=== PATIENT | female | born 1940 | race Caucasian/White ===

== ENCOUNTER 2016-09-03 10:58 | Observation (INO) | payer OTHER ==
[~2016-09-03] VITALS: Ht 157.5 cm; Wt 59.6 kg
[2016-09-03] VITALS (8 sets, daily range): BP systolic 144–168; BP diastolic 74–91; PULSE 61–76; RESP 16–19; TEMP 97.3–98.4; O2SAT 98–100
[~2016-09-03 10:58] MED LIST: ZOCO40TA PO
[2016-09-03] MEDS ORDERED: DEXA0.5E3 PO (11:21)
[2016-09-03] MEDS ORDERED: ZOCO40TA PO (11:21)
[2016-09-03] MEDS ORDERED: METR0.752 TOPICAL (11:21)
[2016-09-03] MEDS ORDERED: DOXY100C PO (11:21)
--- NOTE | 2016-09-03 12:42 | PD ---
HPI Chief Complaint: Oral / Dental Pain or Problem Time Seen by Provider: 12:36 Travel History International Travel<30 days: No Contact w/Intl Traveler<30days: No Traveled to known affect area: No History of Present Illness HPI 75-year-old female with history of high cholesterol, presents to the ER today sent in by her insurance company and primary care doctor, states that over last 3-4 weeks she has been having pustular rash, feeling like her tongue is swollen , has been in to see a boat carpenter to get a biopsy of her pustular rash, and her primary care doctor is sending her to ENT for her throat issues. She states that her dentist thinks that her throat swelling may be secondary to allergic reaction and only possible new medication that she may be allergic to Zocor which she states she started about 3-4 weeks ago when the symptoms started. She has stopped taking the medication for at least 2 weeks. She still is having the throat discomfort which she describes as a upper chest discomfort radiating up to the throat area. No difficulty talking, swallowing, or any other symptoms. She denies any shortness of breath. She does not notice any exacerbating or alleviating factors. She went in to try to get into see her primary care doctor today and was sent into the ER. She states that the chest discomfort is currently a 5 out of 10. Modifying Factors: None Associated Signs & Symptoms: Chest discomfort with radiation up to her throat, feeling like tongue is swollen, rash Risk Factors: High cholesterol PFSH Past Medical History Heart Rhythm Problems: No Cardiac Catheterization: No Cardiovascular Problems: No High Cholesterol: Yes Diabetes: No Diminished Hearing: No Hypertension: No Myocardial Infarction: No Past Surgical History Coronary Artery Bypass Graft: No Hysterectomy: Yes Family History Family Myocardial Infarction: Yes (FATHER AGE 50) Social History Alcohol Use: Yes (2 DRINKS WEEKLY) Tobacco Use: No Substance Use: No Allergies-Medications (Allergen,Severity, Reaction): Coded Allergies: No Known Allergies (Verified , 06/13/14) Reported Meds & Prescriptions Reported Meds & Active Scripts Active Reported Metronidazole Topical 0.75 % Cream 1 Applic TOPICAL BID Doxycycline Hyclate 100 Mg Cap 100 Mg PO BID Dexamethasone Liq (Dexamethasone) 0.5 Mg/5 Ml Elix 0.5 Mg PO DAILY Zocor (Simvastatin) 40 Mg Tab 40 Mg PO DAILY Review of Systems Except as stated in HPI: all other systems reviewed are Neg Physical Exam Narrative GENERAL: Well-developed elderly white female patient currently not in acute distress. Awake and oriented 3. Conversant without issues. No hoarseness. SKIN: Warm and dry. No signs of hives. I do not see significant widespread rash. HEAD: Atraumatic. Normocephalic. EYES: Pupils equal and round. No scleral icterus. No injection or drainage. ENT: No nasal bleeding or discharge. Mucous membranes pink and moist. No signs of angioedema or airway edema. Airway is open. NECK: Trachea midline. No JVD. CARDIOVASCULAR: Regular rate and rhythm. No murmur appreciated. RESPIRATORY: No accessory muscle use. Clear to auscultation. Breath sounds equal bilaterally. GASTROINTESTINAL: Abdomen soft, non-tender, nondistended. Hepatic and splenic margins not palpable. MUSCULOSKELETAL: No obvious deformities. No clubbing. No cyanosis. No edema. NEUROLOGICAL: Awake and alert. No obvious cranial nerve deficits. Motor grossly within normal limits. Normal speech. PSYCHIATRIC: Appropriate mood and affect; insight and judgment normal. Data Data Last Documented VS Vital Signs Date Time Temp Pulse Resp B/P Pulse Ox O2 Delivery O2 Flow Rate FiO2 09/03/16 13:02 62 16 149/78 100 Room Air 09/03/16 11:07 98.4 Orders Electrocardiogram (09/03/16 12:36) Basic Metabolic Panel (Bmp) (09/03/16 12:36) Ckmb (Isoenzyme) Profile (09/03/16 12:36) Complete Blood Count With Diff (09/03/16 12:36) Magnesium (Mg) (09/03/16 12:36) Troponin I (09/03/16 12:36) Chest, Single Ap (09/03/16 12:36) Ecg Monitoring (09/03/16 12:36) Bilateral Bp Monitoring (09/03/16 12:36) Iv Access Insert/Monitor (09/03/16 12:36) Oximetry (09/03/16 12:36) Oxygen Administration (09/03/16 12:36) Sodium Chloride 0.9% Flush (Ns Flush) (09/03/16 12:45) Labs Laboratory Tests Test 09/03/16 09/03/16 12:55 13:20 White Blood Count 5.8 TH/MM3 Red Blood Count 3.95 MIL/MM3 Hemoglobin 12.8 GM/DL Hematocrit 38.3 % Mean Corpuscular Volume 97.1 FL Mean Corpuscular Hemoglobin 32.4 PG Mean Corpuscular Hemoglobin 33.4 % Concent Red Cell Distribution Width 12.9 % Platelet Count 326 TH/MM3 Mean Platelet Volume 8.0 FL Neutrophils (%) (Auto) 70.2 % Lymphocytes (%) (Auto) 19.1 % Monocytes (%) (Auto) 7.5 % Eosinophils (%) (Auto) 0.7 % Basophils (%) (Auto) 2.5 % Neutrophils # (Auto) 4.2 TH/MM3 Lymphocytes # (Auto) 1.1 TH/MM3 Monocytes # (Auto) 0.4 TH/MM3 Eosinophils # (Auto) 0.0 TH/MM3 Basophils # (Auto) 0.1 TH/MM3 CBC Comment DIFF FINAL Differential Comment Sodium Level 142 MEQ/L Potassium Level 4.3 MEQ/L Chloride Level 105 MEQ/L Carbon Dioxide Level 26.7 MEQ/L Anion Gap 10 MEQ/L Blood Urea Nitrogen 20 MG/DL Creatinine 0.69 MG/DL Estimat Glomerular Filtration 83 ML/MIN Rate Random Glucose 101 MG/DL Calcium Level 8.9 MG/DL Magnesium Level 2.2 MG/DL Total Creatine Kinase 51 U/L Troponin I LESS THAN 0.02 NG/ML MDM Medical Decision Making Medical Screen Exam Complete: Yes Emergency Medical Condition: Yes Medical Record Reviewed: Yes Interpretation(s) EKG shows NSR, no ST elevation or depression, and no arrhythmias. No significant T-wave inversions. Last 24 hours Impressions Chest X-Ray 09/03/16 1236 Signed Impressions: Service Date/Time: Saturday, September 03, 2016 13:14 - CONCLUSION: 1. Probable linear scarring/atelectasis in the left lingula and lateral left base. 2. Old granulomatous disease. 3. No confluent infiltrate. Dylan Estrada MD Laboratory Tests Test 09/03/16 09/03/16 12:55 13:20 Red Blood Count 3.95 MIL/MM3 (4.00-5.30) Neutrophils (%) (Auto) 70.2 % (16.0-70.0) Basophils (%) (Auto) 2.5 % (0.0-2.0) Blood Urea Nitrogen 20 MG/DL (7-18) Estimat Glomerular Filtration 83 ML/MIN (>89) Rate Troponin I LESS THAN 0.02 NG/ML (0.02-0.05) Differential Diagnosis Throat swelling, chest discomfort with radiation up to the throat, rash allergic reaction versus anxiety versus dysrhythmias versus ACS Narrative Course I do not see any signs of an obvious angioedema in this case. Her symptoms are questionable for atypicals presentation of cardiac issues. She does have high cholesterol. Her EKG did not show any signs of acute ST-T changes. Cardiac enzymes are negative. I have talked to the patient regarding findings and at this point, my plan would be to admit her for further evaluation a chest pains. Case was discussed with Dr. Ron for admission. Diagnosis Primary Impression: Atypical chest pain Admitting Information Admitting Physician Requests: Admit Cabrera Cornejo MD Sep 03, 2016 12:42 Cabrera Cornejo MD Sep 03, 2016 12:42
[2016-09-03] MEDS ORDERED: SODIUM CHLORIDE 0.9% FLUSH 10 ML FLUSH IVF PRN (12:45)
[2016-09-03 13:03] LABS: AUTOMATED NEUTROPHIL # 4.2 TH/MM3 (1.8-7.7); BASOPHIL # 0.1 TH/MM3 (0-0.2); BASOPHIL % 2.5 % (0.0-2.0); EOSINOPHIL % 0.7 % (0.0-4.0); HEMATOCRIT 38.3 % (35.0-46.0); LYMPH % 19.1 % (9.0-44.0); LYMPHOCYTE # 1.1 TH/MM3 (1.0-4.8); MEAN CELL VOLUME 97.1 FL (80.0-100.0); MEAN CORPUSCULAR HEMOGLOBIN 32.4 PG (27.0-34.0); MEAN CORPUSCULAR HGB CONC 33.4 % (32.0-36.0); MONO % 7.5 % (0.0-8.0); NEUT % 70.2 % (16.0-70.0); PLATELET COUNT 326 TH/MM3 (150-450); RED BLOOD COUNT 3.95 MIL/MM3 (4.00-5.30); RED CELL DISTRIBUTION WIDTH 12.9 % (11.6-17.2); WHITE BLOOD COUNT 5.8 TH/MM3 (4.0-11.0)
[2016-09-03 13:05] LABS: HEMO FLAGS DIFF FINAL
[2016-09-03 13:38] LABS: CHLORIDE 105 MEQ/L (98-107); POTASSIUM 4.3 MEQ/L (3.5-5.1); SODIUM (NA) 142 MEQ/L (136-145)
[2016-09-03 13:41] LABS: ANION GAP 10 MEQ/L (5-15); BICARBONATE 26.7 MEQ/L (21.0-32.0); BLOOD UREA NITROGEN 20 MG/DL (7-18); MAGNESIUM 2.2 MG/DL (1.5-2.5)
[2016-09-03 13:44] LABS: GLOMERULAR FILTRATION RATE 83 ML/MIN (>89)
[2016-09-03 13:58] LABS: CREATINE KINASE 51 U/L (26-192)
--- NOTE | 2016-09-03 14:26 | RADHPO ---
EXAM DATE/TIME: 09/03/2016 13:14 [facility] COMPARISON: CHEST SINGLE AP, August 04, 2009, 11:51. INDICATIONS : Patient states chest pains. MEDICAL HISTORY : Hypercholesterolemia. SURGICAL HISTORY : None. ENCOUNTER: Initial ACUITY: 1 day PAIN SCORE: 4/10 LOCATION: Bilateral chest FINDINGS: A single view of the chest demonstrates the lungs to be symmetrically aerated with probable linear sc arring in the left lingular and lateral base regions. Small granulomatous type calcifications in the right lung. No confluent infiltrates or effusions. Heart size is normal. Osseous structures are intac t. CONCLUSION: 1. Probable linear scarring/atelectasis in the left lingula and lateral left base. 2. Old granulomatous disease. 3. No confluent infiltrate. Dylan Estrada MD on September 03, 2016 at 14:23 Board Certified Radiologist. This report was verified electronically.
[2016-09-03] MEDS ORDERED: ASPIRIN 325 MG TAB PO ONE (15:15)
--- NOTE | 2016-09-03 16:17 | HHI.HP ---
[facility] Service [facility] Primary Care Physician Antony Wynn MD Admission Diagnosis atypical chest pain Diagnoses: Chief Complaint: Chest pain, skin rash, swollen tongue Travel History International Travel<30 Days: No Contact w/Intl Traveler <30 Da: No Traveled to Known Affected Are: No History of Present Illness 75 years old female with history of hyperlipidemia and skin eczema presented to the ED sent by her insurance company primary care physician as she said because she's been having skin rash with swollen tongue over the last few days so she was directed to go to the ED. In ED she did not found to have significant skin changes. Patient told me she has had right eye skin biopsy which found to have eczema she is on Decadron tablet. In fact my assessment is the patient might be anxious (which she admitted) also have a level of somatization. However due to the fact of mentioning chest tightness about 6-7 out of 10 in the center of the chest no relation to movement not precipitated by pressure, no short of breath, no related to food no alleviating or exacerbating factor , on top of a significant family history of coronary artery disease in her father who at the age of 55 of heart, sister had CABG, as well as mother, and with her history of hyperlipidemia it's important to rule out underlying ischemic process. Review of Systems All 10 systems reviewed and was positive for what is mentioned in history of present illness otherwise negative Past Family Social History Past Medical History Hyperlipidemia Dermatitis/ischemia Past Surgical History Skin biopsy on the right side Allergies: Coded Allergies: No Known Allergies (Verified , 09/03/16) Family History Significant for coronary artery disease father at the age of 55 of heart attack, mother and sister had CABG Social History Denied tobacco alcohol or illicit drug abuse Physical Exam Vital Signs Vital Signs Date Time Temp Pulse Resp B/P Pulse Ox O2 Delivery O2 Flow Rate FiO2 09/03/16 13:02 62 16 149/78 100 Room Air 09/03/16 13:02 62 149/78 144/76 09/03/16 12:59 16 100 Room Air 09/03/16 12:59 100 Room Air 09/03/16 11:07 98.4 71 18 152/78 100 Room Air Physical Exam GENERAL: This is a well-nourished, well-developed patient, in no apparent distress. SKIN: No significant rashes preceded, there is a scar on the frontal left thighs due to skin biopsy, HEAD: Atraumatic. Normocephalic. EYES: Pupils equal round and reactive. Extraocular motions intact. No scleral icterus. ENT: Nose without bleeding, or drainage, Airway patent. Dry lips, normal tongue NECK: Trachea midline. Supple CARDIOVASCULAR: Regular rate and rhythm without murmurs, gallops, or rubs. RESPIRATORY: Fair air entry bilaterally. No wheezes, rales, or rhonchi. GASTROINTESTINAL: Abdomen soft, non-tender, nondistended. Positive bowel sounds MUSCULOSKELETAL: Extremities without clubbing, cyanosis, or edema. Pedal pulses appreciated NEUROLOGICAL: Awake and alert. Moves all extremity. Normal speech.no focal neurological deficit Laboratory Laboratory Tests Test 09/03/16 09/03/16 12:55 13:20 White Blood Count 5.8 Red Blood Count 3.95 Hemoglobin 12.8 Hematocrit 38.3 Mean Corpuscular Volume 97.1 Mean Corpuscular Hemoglobin 32.4 Mean Corpuscular Hemoglobin 33.4 Concent Red Cell Distribution Width 12.9 Platelet Count 326 Mean Platelet Volume 8.0 Neutrophils (%) (Auto) 70.2 Lymphocytes (%) (Auto) 19.1 Monocytes (%) (Auto) 7.5 Eosinophils (%) (Auto) 0.7 Basophils (%) (Auto) 2.5 Neutrophils # (Auto) 4.2 Lymphocytes # (Auto) 1.1 Monocytes # (Auto) 0.4 Eosinophils # (Auto) 0.0 Basophils # (Auto) 0.1 CBC Comment DIFF FINAL Differential Comment Sodium Level 142 Potassium Level 4.3 Chloride Level 105 Carbon Dioxide Level 26.7 Anion Gap 10 Blood Urea Nitrogen 20 Creatinine 0.69 Estimat Glomerular Filtration 83 Rate Random Glucose 101 Calcium Level 8.9 Magnesium Level 2.2 Total Creatine Kinase 51 Troponin I LESS THAN 0.02 Result Diagram: 09/03/16 1255 09/03/16 1320 Imaging Last Impressions Chest X-Ray 09/03/16 1236 Signed Impressions: Service Date/Time: Saturday, September 03, 2016 13:14 - CONCLUSION: 1. Probable linear scarring/atelectasis in the left lingula and lateral left base. 2. Old granulomatous disease. 3. No confluent infiltrate. Dylan Estrada MD EKG normal sinus rhythm Assessment and Plan Assessment and Plan 75 years old female with history of hyperlipidemia and skin eczema came with Atypical chest pain/tightness: With significant family history on hyperlipidemia, anxiety/stress Need to rule out ACS Cycle cardiac enzyme 3, first set normal Aspirin given in ED Nuclear stress test in a.m. Subjective feeling of skin rash and swollen tongue: Nothing confirmed clinically, patient attributed to her medication specifically statin She's currently on Decadron pills Hyperlipidemia: Patient not on statin due to? Allergy not included myalgia, check FLP in a.m. DVT prophylaxis with heparin and SCD Discussed Condition With ED physician and patient Wallace Ron MD Sep 03, 2016 16:17
[2016-09-03 17:28] LABS: CREATINE KINASE 51 U/L (26-192)
[2016-09-03] MEDS ORDERED: ACETAMINOPHEN 325 MG TAB PO PRN (21:15)
[2016-09-03] MEDS: HEPARIN SODIUM - SQ 10,000 UNITS/ML VIAL SQ SCH (22:18)
[2016-09-03 23:27] LABS: CREATINE KINASE 43 U/L (26-192)
[2016-09-04 04:00] VITALS: BP 121/74; PULSE 63; RESP 20; TEMP 97.7; O2SAT 96
[2016-09-04] MEDS: HEPARIN SODIUM - SQ 10,000 UNITS/ML VIAL SQ SCH (06:10)
[2016-09-04 07:50] VITALS: PULSE 60
[2016-09-04 08:00] VITALS: BP 148/93; PULSE 64; RESP 21; TEMP 97.7; O2SAT 99
[2016-09-04] MEDS ORDERED: REGADENOSON INJ 0.4 MG/5 ML SYR IV ONE (09:58)
[2016-09-04 10:06] LABS: HDL CHOLESTEROL 107.4 MG/DL (40.0-60.0)
--- NOTE | 2016-09-04 10:26 | EKG ---
Date Performed: 09/03/2016 Time Performed: 17:17:30 PTAGE: 75 years EKG: Sinus rhythm Low QRS voltages in precordial leads Borderline ECG PREVIOUS TRACING : 09/03/2016 12.44 DOCTOR: Nabil Vargas Interpretating Date/Time 09/04/2016 10:24:29
--- NOTE | 2016-09-04 11:09 | EKG ---
Date Performed: 09/03/2016 Time Performed: 12:44:10 PTAGE: 75 years EKG: Sinus rhythm Normal ECG PREVIOUS TRACING : 08/04/2009 19.01 DOCTOR: Nabil Vargas Interpretating Date/Time 09/04/2016 11:08:26
--- NOTE | 2016-09-04 11:12 | RADHPO ---
EXAM DATE/TIME: 09/04/2016 10:16 [facility] COMPARISON: No previous studies available for comparison. INDICATIONS : Upper chest discomfort for 3 weeks. Unable to walk on treadmill. Angina. DOSE: 25.7 mCi Tc99m Myoview at stress. 8.1 mCi Tc99m Myoview at rest. 0.4 mg Lexiscan STRESS SYMPTOMS: Shortness of breath. EJECTION FRACTION: > 70% MEDICAL HISTORY : Hypercholesterolemia. SURGICAL HISTORY : Hysterectomy. ENCOUNTER: Initial ACUITY: 3 weeks PAIN SCALE: 5/10 LOCATION: Substernal chest TECHNIQUE: The patient underwent pharmacologic stress with infusion of prescribed dose. Continuous ECG tracing was monitored during stress. Gated SPECT imaging was performed after stress and conventional SPECT i maging was performed at rest. The examination was performed on a SPECT/CT scanner, both attenuation and non-corrected datasets were reviewed. FINDINGS: DISTRIBUTION: The maximum perfused segment at stress is in the anterolateral wall. PERFUSION STUDY: The pattern of perfusion at stress is within normal limits except for some mild apical thinning. GATED STUDY: There is intact wall motion and thickening without hypokinetic or dyskinetic segments. CONCLUSION: 1. Except for some minimal apical thinning, negative exam with no scintigraphic findings of infarct o r ischemia. 2. Excellent wall motion throughout with an estimated ejection fracture greater than 70%. RISK CATEGORY: Low (<1% Annual Mortality Rate) Dylan Estrada MD on September 04, 2016 at 11:09 Board Certified Radiologist. This report was verified electronically.
--- NOTE | 2016-09-04 11:42 | EKG ---
Date Performed: 09/03/2016 Time Performed: 22:37:34 PTAGE: 75 years EKG: Sinus bradycardia Poor R wave progression - probable normal variant Borderline ECG PREVIOUS TRACING : 09/03/2016 17.17 DOCTOR: Nabil Vargas Interpretating Date/Time 09/04/2016 11:41:41
[2016-09-04 12:00] VITALS: BP 139/80; PULSE 62; RESP 20; TEMP 97.4; O2SAT 98
--- NOTE | 2016-09-04 12:04 | HHI.PR ---
Subjective Remarks Doing well no chest pain or short of breath today Stress test came back unremarkable Patient was going home Objective Vitals Vital Signs Date Time Temp Pulse Resp B/P Pulse Ox O2 Delivery O2 Flow Rate FiO2 09/04/16 08:00 97.7 64 21 148/93 99 09/04/16 04:00 97.7 63 20 121/74 96 09/03/16 20:30 66 09/03/16 20:00 97.3 61 19 159/91 99 09/03/16 19:54 98 09/03/16 19:36 76 16 168/74 98 Room Air 09/03/16 17:44 64 16 163/78 100 Room Air 09/03/16 13:02 62 16 149/78 100 Room Air 09/03/16 13:02 62 149/78 144/76 09/03/16 12:59 16 100 Room Air 09/03/16 12:59 100 Room Air I/O 09/03/16 09/03/16 09/03/16 09/04/16 09/04/16 09/04/16 07:00 15:00 23:00 07:00 15:00 23:00 Intake Total 500 ml Balance 500 ml Intake Oral 500 ml # Voids 1 1 Result Diagram: 09/03/16 1255 09/03/16 1320 Objective Remarks GENERAL: This is a well-nourished, well-developed patient, in no apparent distress. SKIN: No rashes, warm and dry HEAD: Atraumatic. Normocephalic. EYES: Pupils equal round and reactive. Extraocular motions intact. No scleral icterus. ENT: Nose without bleeding, or drainage, Airway patent. NECK: Trachea midline. Supple CARDIOVASCULAR: Regular rate and rhythm without murmurs, gallops, or rubs. RESPIRATORY: Fair air entry bilaterally. No wheezes, rales, or rhonchi. GASTROINTESTINAL: Abdomen soft, non-tender, nondistended. Positive bowel sounds MUSCULOSKELETAL: Extremities without clubbing, cyanosis, or edema. Pedal pulses appreciated NEUROLOGICAL: Awake and alert. Moves all extremity. Normal speech.no focal neurological deficit A/P Assessment and Plan 75 years old female with history of hyperlipidemia and skin eczema came with Atypical chest pain/tightness: With significant family history on hyperlipidemia, anxiety/stress Need to rule out ACS Cycle cardiac enzyme 3, 3 sets normal Aspirin given in ED Nuclear stress test unremarkable except for nonsignificant apical thinning very low risk Subjective feeling of skin rash and swollen tongue: Nothing confirmed clinically, patient attributed to her medication specifically statin She's currently on Decadron pills Hyperlipidemia: With high HDL and LDL at 92 total cholesterol 2:30, Patient stated they stopped recently her statin due to allergy not including myalgia, I 'm not sure if her current FLP result is due to being on statin or not, I advised her to follow up with her primary care physician to decide on statin DVT prophylaxis with heparin and SCD Discharge Planning Discharge patient to home Condition on discharge: Improved Healthy heart Diet as tolerated Ad Kim activity Rx written: No new medication Follow-up with primary care physician Wallace Ron MD Sep 04, 2016 12:04
--- NOTE | 2016-09-05 14:16 | TR ---
Date Performed: 09/04/2016 Time Performed: 10:22:14 DOCTOR: Brian Alarcon DRUG LIST: CLINICAL HISTORY: CHEST PAIN REASON FOR TEST: REASON FOR ENDING: OBSERVATION: CONCLUSION: Lexiscan stress test was performed under standard four minute protocol. Radionuclid e was injected one minute prior to ending the test. No electrocardiographic abormalities were present to suggest ischemia. Nuclear imaging and interpretation are pending. COMMENTS:
== END 2016-09-04 13:28 | disposition home or self-care (01) ==
LOC: PHEFT 10:58 → PHEDA 15:05 → PH3A 20:12
PROVIDERS: ADMIT Hospitalist; ATTEND Hospitalist
DX: R07.89 Other chest pain (principal); L30.9 Dermatitis, unspecified; E78.5 Hyperlipidemia, unspecified; E78.00 Pure hypercholesterolemia, unspecified; F41.9 Anxiety disorder, unspecified; Z82.49 Family history of ischemic heart disease and other diseases of the circulatory system
CPT/HCPCS: 71010; 78452; 80048; 80061; 82550; 83735; 84484; 85025; 93005; 93017; 99285; A9502; G0378; J1644; J2785

== ENCOUNTER 2018-06-02 16:32 | Inpatient (IN) ==
[2018-06-02] MEDS ORDERED: Piperacil/Tazo 3.375 GM Premix 3.375 GM/50 ML PIGGYBACK IV.SIG ONE (17:13)
[2018-06-02] MEDS ORDERED: Morphine Inj 4 MG/ML Vial IV.PUSH ONE (17:13)
[2018-06-02] MEDS ORDERED: Sod Chloride 0.9% Inj 1,000 ML IV.CONT SCH (17:15)
--- NOTE | 2018-06-02 17:16 | ED ---
HPI General Chief complaint: Abdominal Pain Stated complaint: Lower ABD Pain/Phy Sent Time Seen by Provider: 06/02/18 17:08 Source: patient and family Mode of arrival: ambulatory Limitations: no limitations History of Present Illness HPI narrative: 77-year-old female here for evaluation of abdominal pain with an abnormal outpatient CT scan that was performed at [facility] today. The results of the scan were reviewed prior to my assessment of the patient and shows acute appendicitis. Patient confirms that she was told that she has appendicitis. She states that her pain started yesterday and has progressively worsened throughout the day today. She saw her primary care physician who ordered a CT scan. Patient's pain is mainly of her right lower quadrant, however she also has diffuse abdominal bloating sensation and discomfort. Her pain is moderate, constant, intermittently worse at times, worse with the slightest movements. She has felt nauseous but has not vomited. She has not had anything to eat or drink since yesterday aside from oral contrast for the CT scan performed at around 3:30 PM today. History of total abdominal hysterectomy. No other abdominal surgeries. She denies fevers or chills. Related Data Home Medications Medication Instructions Recorded Confirmed aspirin 81 mg PO DAILY 06/02/18 06/02/18 progesterone micronized [Crinone] 1 appful VAGINAL Q OTHER DAY 06/02/18 06/02/18 Allergies Allergy/AdvReac Type Severity Reaction Status Date / Time No Known Allergies Allergy Verified 06/02/18 17:16 Review of Systems ROS: all other systems reviewed are negative PMFSH Medical History Medical History High cholesterol (Acute) Social History Social History Substance History: No History of Abuse Second Hand Smoke Exposure: No Smoking Status: Never smoker How Often Do You Have a Drink Containing Alcohol: Never Recent Travel in [facility] within the Last 8 Weeks: No Recent Out of Country Travel within the Last 8 Weeks: No Immunization History Tetanus Immunization: >5 Years Exam Narrative Exam Narrative: GENERAL: Well-developed, well-nourished, no apparent distress. SKIN: Focused skin assessment warm/dry. No rash. HEAD: Atraumatic. Normocephalic. EYES: Pupils equal and round. No scleral icterus. No injection or drainage. ENT: Mucous membranes pink and moist. NECK: Trachea midline. No JVD. CARDIOVASCULAR: Regular rate and rhythm. No murmur appreciated. RESPIRATORY: No accessory muscle use. Clear to auscultation. Breath sounds equal bilaterally. GASTROINTESTINAL: Abdomen soft, moderately distended, moderate diffuse tenderness with significant right lower quadrant tenderness. No peritoneal signs. Normal bowel sounds. MUSCULOSKELETAL: No obvious deformities. No clubbing. No cyanosis. No edema. NEUROLOGICAL: Awake and alert. No obvious cranial nerve deficits. Motor grossly within normal limits. Normal speech. PSYCHIATRIC: Appropriate mood and affect; insight and judgment normal. Course Initial Documented Vital Signs Temperature 98.2 F 06/02/18 16:44 Pulse Rate 83 06/02/18 16:44 Respiratory Rate 16 06/02/18 16:44 Blood Pressure 127/60 06/02/18 16:44 Pulse Oximetry 96 06/02/18 16:44 Last Documented Vital Signs Temperature 98.2 F 06/02/18 16:44 Pulse Rate 83 06/02/18 16:44 Respiratory Rate 16 06/02/18 16:44 Blood Pressure 127/60 06/02/18 16:44 Pulse Oximetry 96 06/02/18 16:44 Medical Decision Making MDM Narrative Medical decision making narrative: Outpatient CT abdomen pelvis results reviewed and show: There are inflammatory changes in the deep pelvis. The appendix appears dilated and there does appear to be a focal appendicolith at the base of the appendix and some other radiodense debris more proximally within the appendiceal lumen which is dilated to greater than a centimeter. Along the dome of the bladder, there is a small focus of layering content and air which I believe is in a recess of the cecum, rather than reflecting an abscess. The remainder of the proximal colon is notable for mild distention and fluid levels which may reflect some component of ileus. The small bowel is mildly dilated. There are prominent distal colonic diverticula. Vital signs reviewed and are within normal limits. Basic labs ordered. The patient will be given pain medication, antiemetics, and Zosyn. General surgery will be contacted. 5:25 PM: Case discussed with general surgeon Dr. Coreas. He will like the patient to be admitted to the medical service. He will see the patient in consultation for appendectomy. 5:37 PM: Case discussed with hospitalist Dr. Lorenzo who will admit the patient to his service. Labs pending at time of admission. Medical Screen Exam Complete: Yes Emergency Medical Condition: Yes Discharge Plan Discharge Disposition Patient Disposition: ED Admit(ED Internal Use Only) Discharge Condition Condition: Stable Discharge Order Discharge Orders: ED Use Only Admit Order (Routine); Ordered 06/02/18 Ordered By: Ren Santillan Discharge Details Diagnosis: Acute appendicitis Physicians Team ED Provider: Ren Santillan Rxs /Orders / Referrals /Forms Prescriptions: No Action aspirin 81 mg Tablet,Delayed Release (Dr/Ec) 81 mg PO DAILY RF: 0 progesterone micronized [Crinone] 4 % Gel 1 appful VAGINAL Q OTHER DAY RF: 0 Status ED Status: Admitted Patient
[2018-06-02] MEDS ORDERED: Morphine Inj 4 MG/ML Vial IV.PUSH PRN ×2 (17:46)
[2018-06-02 18:08] LABS: Baso % (Auto) 0.2 % (0.0-2.0); Hematocrit 38.9 % (35.0-46.0); Hemoglobin 13.4 gm/dL (11.6-15.3); Lymph % (Auto) 15.2 % (9.0-44.0); Mean Corpuscular HGB Conc 34.4 % (32.0-36.0); Mean Corpuscular Hemoglobin 34.8 pg (27.0-34.0); Mean Corpuscular Volume 101.3 fL (80.0-100.0); Mean Platelet Volume 8.1 fL (7.0-11.0); Mono # (Auto) 0.4 th/mm3 (0.0-0.9); Mono % (Auto) 5.5 % (0.0-8.0); Neut # (Auto) 5.4 th/mm3 (1.8-7.7); Neut % (Auto) 79.1 % (16.0-70.0); Platelet Count 218 th/mm3 (150-450); Red Blood Count 3.84 mil/mm3 (4.00-5.30); Red Cell Distribution Width 13.3 % (11.6-17.2); White Blood Count 6.8 th/mm3 (4.0-11.0)
[2018-06-02 18:18] LABS: Activated Partial Thrombo Time 26.9 sec (23.4-31.7); Prothrombin Time 10.6 sec (9.8-11.6)
--- NOTE | 2018-06-02 18:19 | P.HPIM ---
History of Present Illness Primary Care Physician: UNKNOWN Chief Complaint: Abdominal Pain History of Present Illness: Mrs. Nobles is a 77 year old female. She is healthy at baseline and takes a prophylactic daily baby aspirin and uses a topical vaginal progesterone cream. No other medications. She reports that she has been having some abdominal bloating problems for the past 3 months but in the past 2 days she has had significant and progressive abdominal pain which was most severe last night. She came with friends to the ER today. Imaging shows evidence of appendicitis and ileus. No signs of infection or sepsis on blood work. Pain is controlled on present treatments. No prior history of lung or heart disease. Medically cleared and stable for surgery today. No other complaints tonight. Inpatient Certification Inpatient Certification: I certify that the inpatient services were ordered in accordance with Medicare regulations governing the order. This includes certification that hospital inpatient services are reasonable and necessary and in the case of services not specified as inpatient-only under 42 CFR 419.22(n), that they are appropriately provided as inpatient services in accordance to with the 2-midnight benchmark under 43 CFR 412.3(e) Estimated Total Length of Stay (Days): 3 Plans for Post Hospital Care: Home Review of Systems Constitutional: No fevers, no chills no night sweats, no fatigue, no weakness Eyes: No eye pain, no blurry vision, no loss of vision ENT: No sore throat, no ear pain, no rhinorrhea Cardiovascular: No chest pain, no tachycardia, no palpitations, no syncope Respiratory: No wheezing, no cough, no shortness of breath Gastrointestinal: abdominal pain, no black tarry stools, no bright red blood per rectum, no vomiting, no diarrhea Musculoskeletal: No joint pain, no muscle cramps, no stiffness Integumentary: No rash, no ulcers, no drainage Neurologic: No sensory loss, no loss of motor function, no dizziness Psychiatric: No behavioral changes, no hallucinations, no suicidal ideations PMFSH Medical History Medical History High cholesterol (Acute) Social History Social History Substance History: No History of Abuse Second Hand Smoke Exposure: No Smoking Status: Never smoker How Often Do You Have a Drink Containing Alcohol: Never Recent Travel in [facility] within the Last 8 Weeks: No Recent Out of Country Travel within the Last 8 Weeks: No Immunization History Tetanus Immunization: >5 Years Medications and Allergies Allergies Allergy/AdvReac Type Severity Reaction Status Date / Time No Known Allergies Allergy Verified 06/02/18 17:16 Home Medications Medication Instructions Recorded Confirmed Type aspirin 81 mg PO DAILY 06/02/18 06/02/18 History progesterone micronized [Crinone] 1 appful VAGINAL Q OTHER DAY 06/02/18 History rosuvastatin [Crestor] 10 mg PO DAILY 06/02/18 06/02/18 History Active Medications: Active Medications Acetaminophen (Tylenol) 650 mg PO Q4H PRN PRN Reason: Temp > 100.4 Al Hydroxide/Mg Hydroxide (Milk Of Tamir oRb) 30 ml PO Q12H PRN PRN Reason: Mild Constipation Sodium Chloride (Ns Inj) 1,000 mls @ 125 mls/hr IV.CONT .Q8H IOANA Stop: 06/03/18 01:14 Last Admin: 06/02/18 18:03 Dose: 125 mls/hr Sodium Chloride (Ns Inj) 1,000 mls @ 80 mls/hr IV.CONT .[id number] IOANA Morphine Sulfate (Morphine Inj) 2 mg IV.PUSH Q4H PRN PRN Reason: Pain 3 to 6 Morphine Sulfate (Morphine Inj) 4 mg IV.PUSH Q4H PRN PRN Reason: Pain 7 to 10 Ondansetron HCl (Zofran Inj) 4 mg IV.PUSH Q6H PRN PRN Reason: NAUSEA OR VOMITING Sodium Chloride (Ns Flush) 2 ml IV.FLUSH PRN PRN PRN Reason: FLUSH AFTER USING IV ACCESS Sodium Chloride (Ns Flush) 2 ml IV.FLUSH BID IOANA Sodium Chloride (Ns Flush) 2 ml IV.FLUSH PRN PRN PRN Reason: FLUSH AFTER USING IV ACCESS Physical Exam Vital signs: Last Vital Signs Temp 98.2 F 06/02/18 16:44 Pulse 83 06/02/18 16:44 Resp 18 06/02/18 18:06 BP 127/60 06/02/18 16:44 Pulse Ox 96 06/02/18 16:44 Intake & Output 05/31/18 06/01/18 06/02/18 06/03/18 06:59 06:59 06:59 06:59 Weight 59.874 kg Narrative: GENERAL: NAD, A&Ox3 HEAD: Normocephalic. NECK: Supple, trachea midline. No lymphadenopathy. EYES: No scleral icterus. No injection or drainage. CARDIOVASCULAR: Regular rate and rhythm without murmurs, gallops, or rubs. RESPIRATORY: Breath sounds equal bilaterally. No accessory muscle use. GASTROINTESTINAL: Abdomen soft, with moderate tenderness and mild distention. MUSCULOSKELETAL: No cyanosis, or edema. SKIN: Warm and dry. NEURO: No focal neurological deficits. Results Labs CBC & Chem 7: 06/02/18 17:40 12 17:40 Caprini VTE Risk Assessment Caprini VTE Risk Assessment: No/Low Risk (score <= 1) Caprini Risk Assessment Model: Point Value = 1 Point Value = 2 Point Value = 3 Point Value = 5 Age 41-60 Minor surgery BMI > 25 kg/m2 Swollen legs Varicose veins or History of unexplained or recurrent spontaneous Oral contraceptives or hormone replacement Sepsis (< 1 month) Serious lung disease, including pneumonia (< 1 month) Abnormal pulmonary function Acute myocardial infarction Congestive heart failure (< 1 month) History of inflammatory bowel disease Medical patient at bed rest Age 61-74 Arthroscopic surgery Major open surgery (> 45 min) Laparoscopic surgery (> 45 min) Malignancy Confined to bed (> 72 hours) Immobilizing plaster cast Central venous access Age >= 75 History of VTE Family history of VTE Factor V Leiden Prothrombin [id number] Lupus anticoagulant Anticardiolipin antibodies Elevated serum homocysteine Heparin-induced thrombocytopenia Other congenital or acquired thrombophilia Stroke (< 1 month) Elective arthroplasty Hip, pelvis, or leg fracture Acute spinal cord injury (< 1 month) Prophylaxis Regimen: Total Risk Factor Score Risk Level Prophylaxis Regimen 0-1 Low Early ambulation 2 Moderate Order ONE of the following: *Sequential Compression Device (SCD) *Heparin 5000 units SQ BID 3-4 Higher Order ONE of the following medications: *Heparin 5000 units SQ TID *Enoxaparin/Lovenox 40 mg SQ daily (WT < 150 kg, CrCl > 30 mL/min) *Enoxaparin/Lovenox 30 mg SQ daily (WT < 150 kg, CrCl > 10-29 mL/min) *Enoxaparin/Lovenox 30 mg SQ BID (WT < 150 kg, CrCl > 30 mL/min) AND/OR *Sequential Compression Device (SCD) 5 or more Highest Order ONE of the following medications: *Heparin 5000 units SQ TID (Preferred with Epidurals) *Enoxaparin/Lovenox 40 mg SQ daily (WT < 150 kg, CrCl > 30 mL/min) *Enoxaparin/Lovenox 30 mg SQ daily (WT < 150 kg, CrCl > 10-29 mL/min) *Enoxaparin/Lovenox 30 mg SQ BID (WT < 150 kg, CrCl > 30 mL/min) AND *Sequential Compression Device (SCD) Assessment and Plan Plan 77-year-old female admitted secondary to acute appendicitis Acute appendicitis Follow clinically General surgery consulted Plan for appendectomy today IV hydration N.p.o. As needed pain treatment DVT prophylaxis SCDs
[2018-06-02 18:23] LABS: Albumin 3.6 g/dL (3.4-5.0); Anion Gap 11 meq/L (5-15); Aspartate Aminotransferase 18 U/L (15-37); Blood Urea Nitrogen 20 mg/dL (7-18); Calcium 8.7 mg/dL (8.5-10.1); Carbon Dioxide 23.8 meq/L (21.0-32.0); Chloride 96 meq/L (98-107); Glomerular Filtration Rate 44 mL/min (>89); Glucose,Random 106 mg/dL (74-106); Lipase 46 U/L (73-393); Magnesium 1.7 mg/dL (1.5-2.5); Potassium 3.6 meq/L (3.5-5.1); Sodium 131 meq/L (136-145)
[2018-06-02 18:24] LABS: Alanine Aminotransferase 21 U/L (10-53)
[2018-06-02 18:26] LABS: Alkaline Phosphatase 77 U/L (45-117); Total Protein 7.6 g/dL (6.4-8.2)
[2018-06-02] MEDS ORDERED: Bupivacaine/Epinephrine Inj 0.25% 50 ML Vial ONE (18:56)
--- NOTE | 2018-06-02 20:15 | MB ---
cc: Ivan Coreas MD DATE: 06/02/2018 CHIEF COMPLAINT: Appendicitis. HISTORY OF PRESENT ILLNESS: Ms. Nobles is a very pleasant 77-year-old female who presented to her primary physician this morning complaining of a 1-day history of right lower quadrant abdominal pain. She was examined and thought to have appendicitis. She was sent to [facility], where a CT scan of the abdomen and pelvis confirmed appendicitis. She was then referred to the emergency room for evaluation. The patient was seen and evaluated by Dr. Ren Santillan in the ER. He confirmed her history and physical exam to be consistent with appendicitis. He also reviewed the CT report from [facility] documenting appendicitis. Surgical consultation was requested. The patient reports nausea and 1 episode of emesis in the emergency room. She denies any fever. She reports loss of appetite. She has not eaten anything today. She denies previous abdominal pain. The pain is mainly in the right lower quadrant, made worse by movement. She denies any fever or chills. She denies any dysuria. She denies any change in her bowels. PAST MEDICAL HISTORY: 1. Hypercholesterolemia. 2. Pancreatic insufficiency. PAST SURGICAL HISTORY: She had a laparoscopic hysterectomy about 20 years ago. MEDICATIONS: She takes: 1. Crestor. 2. Creon. ALLERGIES: SHE HAS NO KNOWN DRUG ALLERGIES. SOCIAL HISTORY: She does not smoke, and drinks a glass of wine with dinner. She lives here locally with her . FAMILY HISTORY: Remarkable for coronary artery disease in her father. REVIEW OF SYSTEMS: Please see HPI. The patient denies any chest pain or shortness of breath. She reports right lower quadrant pain with associated nausea. She denies fever. She denies any dysuria. She denies any other symptoms. PHYSICAL EXAMINATION: VITAL SIGNS: Temperature is 98, pulse is 80, blood pressure 120/60, respiratory rate 20. GENERAL: This is a pleasant, elderly female, who appears younger than stated age, sitting in the emergency department and visiting with her friends. HEENT: Pupils equal, round, and reactive to light. Sclerae is white. Oropharynx is clear and moist. NECK: Supple. No masses. LUNGS: Clear to auscultation bilaterally. HEART: S1, S2. No murmur. ABDOMEN: Soft, tender in the right lower quadrant with voluntary guarding and rebound. EXTREMITIES: Free range of motion x 4. NEUROLOGIC: She is alert and oriented x 3. IMAGING: I have not yet reviewed the imaging. I need to log onto the outpatient radiology to review the imaging. By report, the patient had a CT scan earlier today consistent with appendicitis. We will evaluate imaging online. IMPRESSION: Acute appendicitis. PLAN: The risks and benefits of immediate appendectomy were discussed with the patient. She was agreeable. Operating room was notified and they said they could take the patient in approximately 1 hour. We will go ahead and give her a dose of antibiotics here. We will proceed with appendectomy immediately. The patient has already seen and been evaluated by Dr. Nigel Lorenzo of the service, who is going to admit the patient. MD COLLEEN Sher/manjeet/luz maria , 06:52 PM , 06:59 PM
[2018-06-02] MEDS ORDERED: Sugammadex Inj 200 MG/2 ML Vial IV.PUSH ONE (20:22)
[2018-06-02] MEDS ORDERED: fentaNYL Citrate Inj 100 MCG/2 ML Ampul ONE ×2 (20:54)
--- NOTE | 2018-06-02 21:13 | MP ---
cc: Ivan Coreas MD DATE OF OPERATION: 06/02/2018 PREOPERATIVE DIAGNOSIS: Acute appendicitis. POSTOPERATIVE DIAGNOSES: 1. Acute appendicitis. 2. Gangrenous perforated peritonitis with gross fecal contamination and peritonitis. 3. Severe ileus secondary to peritonitis. PROCEDURE PERFORMED: 1. Laparoscopic appendectomy. 2. Irrigation and drainage, abdominal cavity, 3 L of warm saline. 3. Placement of Prince-Suarez drain, appendiceal stump and pelvis. SURGEON: Ivan Coreas MD ANESTHESIA: General endotracheal. COMPLICATIONS: None. INDICATIONS FOR PROCEDURE: Ms. Nobles is a pleasant 77-year-old female who presented to the emergency department this afternoon with a 2-day history of right lower quadrant abdominal pain. She was seen earlier by her primary care physician and sent for an outpatient CT. Outpatient CT demonstrated appendicitis. She was referred to the ER. She was seen and evaluated. She was offered immediate appendectomy. Risks and benefits of the procedure were discussed with her and she is agreeable. INTRAOPERATIVE FINDINGS: The patient had a gangrenous necrotic appendix that was grossly perforated at the base, about a centimeter away from the cecum. There was active stool seen leaking out of the appendix. There was gross succuss entericus and purulent fluid throughout the abdominal cavity, consistent with fecal contamination and peritonitis. The patient was noted to have a marked ileus with significant dilatation of the small and large bowel. Abdomen was rinsed out with 3 L of warm saline solution and then evacuated. A VINNY drain was left in the pelvis, adjacent to the appendiceal stump. DETAILS OF PROCEDURE: The patient was identified, brought to the operating room, placed supine on the operating table. After adequate general endotracheal anesthesia was achieved, the abdomen was prepped and draped in standard surgical fashion. Supraumbilical space was anesthetized with 0.25% Marcaine. Supraumbilical incision was made. Dissection was carried down through subcutaneous tissue to midline fascia. Midline fascia was then incised sharply. A finger was then placed in the peritoneal cavity without difficulty. Blunt balloon trocar was inserted and the abdomen was insufflated to 15 mmHg using CO2 gas. It should be noted, when we made the abdominal incision, we could smell gross feces. Abdomen was insufflated. Two 5 mm ports were placed in the lower midline under direct vision. Immediately when we entered the abdominal cavity, we could see there was turbid fluid throughout, and we could see pieces of stool and foul-smelling fluid in all 4 quadrants. This was immediately suctioned and irrigated out. Attention was directed to the cecum, which was found to be in the midline. The cecum had a fairly intense phlegmon, which was opened up with hydrodissection. The appendix was clearly seen. The appendix was necrotic throughout its entire length. The appendix was then grasped and elevated cephalad and there was an obvious perforation in the proximal appendix just distal to the cecum with active stool seen leaking out. This was immediately suctioned and irrigated. Once the fecal contamination stopped, the mesentery of the appendix was taken down using Harmonic scalpel. As stated, the appendix was necrotic and the perforation was very proximal. We dissected all the way up onto the cecum with care to not injure the cecum. The proximal appendix at the junction of the cecum was then taken with a 2-0 PDS Endoloop x 2. We did have viable tissue proximal to the appendix and distal to our Endoloop. The appendix then basically auto transected from us holding it up and applying the Endoloops. We did take the Harmonic scalpel to the stump of the appendix and cauterized the remaining stump. There was also noted to be an appendicolith in the proximal appendix, which we clearly saw. It did fall out, but we retrieved and placed into the EndoCatch with the necrotic appendix. The appendix was then removed and sent to pathology for analysis. Next, the cecal base was carefully inspected. It was copiously irrigated and there was no evidence of a leak. The Endoloops were tested and found to be intact. They were not loose and there was a cuff of a distal appendix distal to them indicating they were secure and there was no leakage of stool. After we did this, we then irrigated all 4 quadrants of the abdominal cavity with 3 L of warm saline solution. There was noted to be pus up above the liver and this was removed. There was pus all down in the pelvis and this was removed. We continued irrigating until the effluent was noted to be clear. The patient was noted to have a pronounced ileus with marked dilatation of the large and small bowel. This was photographed. Once we finished rinsing it out and everything looked clean, a 7-Georgian Prince-Suarez drain was inserted through the umbilical port and brought out through the suprapubic port. Drain was then placed adjacent to the cecal base at the stump of the appendix and then routed down into the pelvis. Omentum was then placed over the cecum at the appendiceal stump as well. The ports were then removed under direct vision. The midline fascia was repaired with 0 Vicryl in a [id number] fashion. The drain was secured with a 3-0 nylon x 2. The port sites were then closed with a 4-0 Vicryl externally due to the patient's high risk of infection due to gross fecal contamination. The patient tolerated the procedure well, was awakened, extubated, and brought to recovery in stable condition. MD COLLEEN Sher/ryanne , 08:40 PM , 08:49 PM
[2018-06-02] MEDS: Sod Chloride 0.9% Inj 1,000 ML IV.CONT SCH (21:35)
[2018-06-02] MEDS: Piperacil/Tazo 3.375 GM Premix 3.375 GM/50 ML PIGGYBACK IV.SIG SCH (22:58)
[2018-06-03 03:18] LABS: Bacteria,Urine Rare /hpf; Bilirubin,Urine Negative (Negative); Clarity,Urine Cloudy (Clear); Color,Urine Yellow (Yellw/Straw); Glucose,Urine (UA) Negative (Negative); Hyaline Casts,Urine 1 /lpf (0-3); Mucus,Urine Few /lpf (Occasional); Nitrite,Urine Negative (Negative); Renal Epithelial Cells,Urine 1 /hpf; Specific Gravity,Urine 1.015 (1.002-1.035); Squamous Epithelial Cell,Urine 26 /hpf (0-5); Transitional Epi Cells,Urine 4 /hpf
[2018-06-03 03:19] LABS: Leukocyte Esterase,Urine Trace (Negative)
[2018-06-03] MEDS: Ketorolac Inj 30 MG/ML (IVP) Vial IV.PUSH PRN (03:20)
[2018-06-03] MEDS: Piperacil/Tazo 3.375 GM Premix 3.375 GM/50 ML PIGGYBACK IV.SIG SCH ×3 (05:22→21:31)
[2018-06-03] MEDS: Sod Chloride 0.9% Inj 1,000 ML IV.CONT SCH ×2 (05:30→21:34)
[2018-06-03 06:15] LABS: Baso % (Auto) 0.1 % (0.0-2.0); Hematocrit 28.8 % (35.0-46.0); Hemoglobin 9.9 gm/dL (11.6-15.3); Lymph # (Auto) 0.3 th/mm3 (1.0-4.8); Lymph % (Auto) 7.4 % (9.0-44.0); Mean Corpuscular HGB Conc 34.5 % (32.0-36.0); Mean Corpuscular Hemoglobin 34.9 pg (27.0-34.0); Mean Corpuscular Volume 101.2 fL (80.0-100.0); Mean Platelet Volume 8.1 fL (7.0-11.0); Mono # (Auto) 0.3 th/mm3 (0.0-0.9); Mono % (Auto) 6.6 % (0.0-8.0); Neut # (Auto) 3.5 th/mm3 (1.8-7.7); Neut % (Auto) 85.9 % (16.0-70.0); Platelet Count 159 th/mm3 (150-450); Red Blood Count 2.85 mil/mm3 (4.00-5.30); Red Cell Distribution Width 13.1 % (11.6-17.2); White Blood Count 4.1 th/mm3 (4.0-11.0)
[2018-06-03 06:52] LABS: Albumin 2.4 g/dL (3.4-5.0); Calcium 7.3 mg/dL (8.5-10.1); Carbon Dioxide 22.1 meq/L (21.0-32.0); Potassium 3.7 meq/L (3.5-5.1); Total Protein 5.4 g/dL (6.4-8.2)
[2018-06-03 07:42] LABS: Lymphocytes 4 % (9-44); Metamyelocytes 4 % (0-1); Monocytes 3 % (0-8); Platelet Morphology Normal (Normal)
--- NOTE | 2018-06-03 10:14 | P.PNGS ---
Subjective Interval history: Resting in bed No complaints Not hungry Physical Exam Vital signs: Vital Signs 06/02/18 16:44 06/02/18 18:06 06/02/18 18:30 Temperature 98.2 F 99.3 F Pulse Rate 83 75 Respiratory Rate 16 18 19 Blood Pressure 127/60 120/56 L Pulse Oximetry 96 92 L 06/02/18 20:46 06/02/18 21:00 06/02/18 21:15 Temperature 98.0 F 98.0 F Pulse Rate 109 H 95 H 88 Respiratory Rate 20 20 20 Blood Pressure 128/70 146/68 H 129/71 Pulse Oximetry 98 100 98 06/02/18 23:46 06/03/18 04:00 Temperature 98.2 F 97.3 F L Pulse Rate 79 74 Respiratory Rate 18 19 Blood Pressure 102/56 L 137/63 Pulse Oximetry 92 L 96 Intake & Output 06/02/18 06/03/18 06/03/18 18:59 06:59 18:59 Intake Total 50 / 50 2600 / 2600 Output Total 1425 / 1425 Balance 50 / 50 1175 / 1175 Weight 59.874 kg 59.8 kg Intake: IV 50 / 50 1100 / 1100 NS Inj 1,000 ML @ 125 mls/hr IV 1000 / 1000 .CONT .Q8H [facility] Rx#:[id number] Zosyn 3.375 GM Premix 3.375 gm 50 / 50 100 / 100 In 50 ml @ 100 mls/hr IV.SIG Q8H IOANA Rx#:[id number] Oral 0 / 0 Anesthesia Amount 1500 / 1500 Output: Urine 700 / 700 Estimated Blood Loss 5 / 5 Wound Drainage 720 / 720 # 1 Abdomen 720 / 720 Other: Date of Last Bowel Movement 05/31/18 Narrative: Alert and awake Abd: soft; minimal tender around umbilicus; VINNY with cloudy drainage Results - Labs 06/03/18 05:40 06/03/18 05:40 Laboratory Results - last 24 hr 06/02/18 06/02/18 06/02/18 17:40 17:40 17:40 WBC 6.8 RBC 3.84 L Hgb 13.4 Hct 38.9 MCV 101.3 H MCH 34.8 H MCHC 34.4 RDW 13.3 Plt Count 218 MPV 8.1 Prelim Diff (Auto) Neut % (Auto) 79.1 H Lymph % (Auto) 15.2 [place] % (Auto) 5.5 Eos % (Auto) 0.0 Baso % (Auto) 0.2 Neut # (Auto) 5.4 Lymph # (Auto) 1.0 [place] # (Auto) 0.4 Eos # (Auto) 0.0 Baso # (Auto) 0.0 WBC Differential . Seg Neuts % (Manual) Band Neuts % (Manual) Lymphocytes % (Manual) Monocytes % (Manual) Metamyelocytes % (Man) Abs Neuts (Manual) Differential Comment Auto diff final Platelet Estimate Platelet Morphology PT 10.6 INR 1.0 APTT 26.9 Sodium 131 L Potassium 3.6 Chloride 96 L Carbon Dioxide 23.8 Anion Gap 11 BUN 20 H Creatinine 1.20 H Estimated GFR 44 L Random Glucose 106 Lactic Acid Calcium 8.7 Calcium Adj for Albumin Magnesium 1.7 Total Bilirubin 1.8 H AST 18 ALT 21 Alkaline Phosphatase 77 Total Protein 7.6 Albumin 3.6 Lipase 46 L Urine Color Urine Clarity Urine pH Ur Specific [place] Urine Protein Urine Glucose (UA) Urine Ketones Urine Occult Blood Urine Nitrate Urine Bilirubin Urine Urobilinogen Ur Leukocyte Esterase Urine RBC Urine WBC Ur Squamous Epith Cells Ur Transition Epith Cell Ur Renal Epithelial Cell Urine Bacteria Hyaline Casts Urine Mucus Micro UA Comment Ur Microscopic Review Urine Culture Comments 06/02/18 06/03/18 06/03/18 17:40 02:55 05:40 WBC 4.1 RBC 2.85 L Hgb 9.9 L D Hct 28.8 L MCV 101.2 H MCH 34.9 H MCHC 34.5 RDW 13.1 Plt Count 159 MPV 8.1 Prelim Diff (Auto) Slide review pending Neut % (Auto) 85.9 H Lymph % (Auto) 7.4 L [place] % (Auto) 6.6 Eos % (Auto) 0.0 Baso % (Auto) 0.1 Neut # (Auto) 3.5 Lymph # (Auto) 0.3 L [place] # (Auto) 0.3 Eos # (Auto) 0.0 Baso # (Auto) 0.0 WBC Differential Manual diff final Seg Neuts % (Manual) 46 Band Neuts % (Manual) 43 H Lymphocytes % (Manual) 4 L Monocytes % (Manual) 3 Metamyelocytes % (Man) 4 H Abs Neuts (Manual) 3.8 Differential Comment . Platelet Estimate Low L Platelet Morphology Normal PT INR APTT Sodium Potassium Chloride Carbon Dioxide Anion Gap BUN Creatinine Estimated GFR Random Glucose Lactic Acid 4.4 H* Calcium Calcium Adj for Albumin Magnesium Total Bilirubin AST ALT Alkaline Phosphatase Total Protein Albumin Lipase Urine Color Yellow Urine Clarity Cloudy H Urine pH 5.0 Ur Specific [place] 1.015 Urine Protein 30 H Urine Glucose (UA) Negative Urine Ketones Negative Urine Occult Blood Negative Urine Nitrate Negative Urine Bilirubin Negative Urine Urobilinogen Less than 2 Ur Leukocyte Esterase Trace H Urine RBC Less than 1 Urine WBC 3 Ur Squamous Epith Cells 26 Ur Transition Epith Cell 4 Ur Renal Epithelial Cell 1 Urine Bacteria Rare H Hyaline Casts 1 Urine Mucus Few H Micro UA Comment Culture not ind Ur Microscopic Review Not Reportable Urine Culture Comments Culture not ind 06/03/18 05:40 WBC RBC Hgb Hct MCV MCH MCHC RDW Plt Count MPV Prelim Diff (Auto) Neut % (Auto) Lymph % (Auto) [place] % (Auto) Eos % (Auto) Baso % (Auto) Neut # (Auto) Lymph # (Auto) [place] # (Auto) Eos # (Auto) Baso # (Auto) WBC Differential Seg Neuts % (Manual) Band Neuts % (Manual) Lymphocytes % (Manual) Monocytes % (Manual) Metamyelocytes % (Man) Abs Neuts (Manual) Differential Comment Platelet Estimate Platelet Morphology PT INR APTT Sodium 136 Potassium 3.7 Chloride 106 D Carbon Dioxide 22.1 Anion Gap 8 BUN 17 Creatinine 0.72 Estimated GFR 79 L Random Glucose 114 H Lactic Acid Calcium 7.3 L* D Calcium Adj for Albumin 8.6 Magnesium Total Bilirubin 0.9 AST 17 ALT 18 Alkaline Phosphatase 53 Total Protein 5.4 L D Albumin 2.4 L D Lipase Urine Color Urine Clarity Urine pH Ur Specific [place] Urine Protein Urine Glucose (UA) Urine Ketones Urine Occult Blood Urine Nitrate Urine Bilirubin Urine Urobilinogen Ur Leukocyte Esterase Urine RBC Urine WBC Ur Squamous Epith Cells Ur Transition Epith Cell Ur Renal Epithelial Cell Urine Bacteria Hyaline Casts Urine Mucus Micro UA Comment Ur Microscopic Review Urine Culture Comments Assessment and Plan - Assessment (1) Acute appendicitis Code(s): K35.80 - Unspecified acute appendicitis Status: Acute Plan: 77 year old female POD1 lap appy; perforated; peritonitis -Clear liquids okay for today -Patient is high risk for ileus -Continue routine VINNY care -Continue IVF -Continue Zosyn -OOB as tolerated -Patient will need to remain in the hospital for atleast the next 24-48 hours until bowel function returns (1) Acute appendicitis Qualifiers: Acute appendicitis type: with localized peritonitis Appendicitis gangrene presence: without gangrene Appendicitis perforation presence: without perforation Appendicitis abscess presence: without abscess Qualified Code(s): K35.30 - Acute appendicitis with localized peritonitis, without perforation or gangrene
--- NOTE | 2018-06-03 14:46 | P.PNIM ---
Subjective Interval history: 77-year-old female who underwent arthroscopic surgery for appendicitis yesterday. She has been tolerating her diet, ambulating to the bathroom, bending over to pick things off the floor. She has a VINNY drain in place which shows moderate amount of purulent fluid. She denies any fevers, denies nausea or vomiting. Physical Exam Vital signs: Last Vital Signs Temp 97.7 F 06/03/18 12:00 Pulse 64 06/03/18 12:00 Resp 13 06/03/18 12:00 BP 101/53 L 06/03/18 12:00 Pulse Ox 96 06/03/18 12:00 Intake & Output 06/01/18 06/02/18 06/03/18 06/04/18 06:59 06:59 06:59 06:59 Intake Total 2650 / 2650 100 / 100 Output Total 1425 / 1425 Balance 1225 / 1225 100 / 100 Weight 59.8 kg 59.8 kg Narrative: GENERAL: AAOx3, no acute distress SKIN: Warm and dry. No rashes HEAD: Atruamtic, normocephalic. EYES: No scleral icterus. No injection or drainage. ENT: Moist mucous membranes, patent nares, no erythema of oropharynx. NECK: Supple, trachea midline. No JVD or lymphadenopathy. Normal thyroid. CARDIOVASCULAR: Regular rate and rhythm. No murmurs, gallops, or rubs. RESPIRATORY: Breath sounds clear equal bilaterally. No crackles or wheezes. No accessory muscle use. GASTROINTESTINAL: Abdomen soft, non-tender, nondistended, normal active bowel sounds, surgical wounds appear clean, VINNY drain has moderate amount of purulent fluid MUSCULOSKELETAL: No cyanosis, or edema. NEURO: CN II-XII grossly intact, no focal deficits, no slurring of speech Results Labs CBC & Chem 7: 06/03/18 05:40 06/03/18 05:40 Assessment and Plan (1) Acute appendicitis: Code(s): K35.80 - Unspecified acute appendicitis Status: Acute Plan Appendicitis VINNY drain placed due to presence of pus around appendix, currently draining moderate amount of pus Patient is doing very well postop, ambulating, eating Continuing IV zosyn Appreciate General Surgery DVT Prophylaxis SCD's and ambulation Disposition She will likely need a few more days on Zosyn, and monitoring of VINNY output. Will plan for discharge when cleared by General Surgery Progress Note: Quality VTE Deep Vein Thrombosis/Pulmonary Embolism Present on Admission: No _ (1) Acute appendicitis Qualifiers: Acute appendicitis type: with localized peritonitis Appendicitis abscess presence: without abscess Appendicitis gangrene presence: without gangrene Appendicitis perforation presence: without perforation Qualified Code(s): K35.30 - Acute appendicitis with localized peritonitis, without perforation or gangrene
--- NOTE | 2018-06-03 15:21 | ECG ---
Date Performed: 06/02/2018 Time Performed: 18:14:31 PTAGE: 77 years EKG: Sinus rhythm WITH OCCASIONAL SUPRAVENTRICULAR PREMATURE COMPLEXES POSSIBLE LEFT ATRIAL ENLARGEMENT LOW QRS VOLTAG E IN PRECORDIAL LEADS Since the previous tracing, no significant change noted BORDERLINE ECG NO PREVIOUS TRACING DOCTOR: Ritu Abdalla Interpretating Date/Time 06/03/2018 15:20:43
[2018-06-04] MEDS: Piperacil/Tazo 3.375 GM Premix 3.375 GM/50 ML PIGGYBACK IV.SIG SCH ×3 (05:47→20:58)
[2018-06-04] MEDS: Sod Chloride 0.9% Inj 1,000 ML IV.CONT SCH ×2 (06:28→10:21)
[2018-06-04] MEDS: Acetaminophen 325 MG Tablet PO PRN (08:17)
[2018-06-04] MEDS: Ketorolac Inj 30 MG/ML (IVP) Vial IV.PUSH PRN ×2 (10:19→15:31)
[2018-06-04 11:03] LABS: Baso % (Auto) 0.3 % (0.0-2.0); Eos % (Auto) 0.2 % (0.0-4.0); Hematocrit 31.9 % (35.0-46.0); Hemoglobin 10.6 gm/dL (11.6-15.3); Lymph # (Auto) 0.5 th/mm3 (1.0-4.8); Lymph % (Auto) 8.3 % (9.0-44.0); Mean Corpuscular HGB Conc 33.2 % (32.0-36.0); Mean Corpuscular Hemoglobin 33.6 pg (27.0-34.0); Mean Corpuscular Volume 101.2 fL (80.0-100.0); Mean Platelet Volume 7.9 fL (7.0-11.0); Mono # (Auto) 0.3 th/mm3 (0.0-0.9); Mono % (Auto) 5.6 % (0.0-8.0); Neut # (Auto) 4.8 th/mm3 (1.8-7.7); Neut % (Auto) 85.6 % (16.0-70.0); Platelet Count 188 th/mm3 (150-450); Red Blood Count 3.15 mil/mm3 (4.00-5.30); Red Cell Distribution Width 13.5 % (11.6-17.2); White Blood Count 5.6 th/mm3 (4.0-11.0)
[2018-06-04 11:30] LABS: Calcium 7.4 mg/dL (8.5-10.1); Carbon Dioxide 19.5 meq/L (21.0-32.0)
[2018-06-04 11:39] LABS: Albumin 2.8 g/dL (3.4-5.0); Calcium-Albumin Corrected 8.4 mg/dL (8.5-10.1)
--- NOTE | 2018-06-04 13:01 | P.PNIM ---
Subjective Interval history: 77-year-old female admitted with appendicitis, surgical removal demonstrated collection of pus which was cleaned out. She had a VINNY tube placed which was draining pus yesterday, amount reduced today. Today she complains of recurring fevers and generalized malaise. She is still having intermittent urinary retention, but uninterested in straight cath, that she has managed to position herself in ways to relieve her bladder while toileting. Physical Exam Vital signs: Last Vital Signs Temp 98 F 06/04/18 12:00 Pulse 77 06/04/18 12:00 Resp 18 06/04/18 12:00 BP 126/62 06/04/18 12:00 Pulse Ox 98 06/04/18 12:00 Intake & Output 06/02/18 06/03/18 06/04/18 06/05/18 06:59 06:59 06:59 06:59 Intake Total 2650 / 2650 1150 / 1150 1000 / 1000 Output Total 1425 / 1425 923 / 923 Balance 1225 / 1225 227 / 227 1000 / 1000 Weight 59.8 kg 59.8 kg Narrative: GENERAL: AAOx3, appears febrile today SKIN: Warm and dry. No rashes HEAD: Atruamtic, normocephalic. EYES: No scleral icterus. No injection or drainage. ENT: Moist mucous membranes, patent nares, no erythema of oropharynx. NECK: Supple, trachea midline. No JVD or lymphadenopathy. Normal thyroid. CARDIOVASCULAR: Tachycardia. No murmurs, gallops, or rubs. RESPIRATORY: Breath sounds clear equal bilaterally. No crackles or wheezes. No accessory muscle use. GASTROINTESTINAL: Abdomen soft, non-tender, nondistended, normal active bowel sounds, surgical wounds appear clean, VINNY drain has reduced amount of purulent fluid, abdomen is nonacute MUSCULOSKELETAL: No cyanosis, or edema. NEURO: CN II-XII grossly intact, no focal deficits, no slurring of speech Results Labs CBC & Chem 7: 06/04/18 10:46 06/04/18 10:46 Assessment and Plan (1) Acute appendicitis: Code(s): K35.80 - Unspecified acute appendicitis Status: Acute Plan Appendicitis VINNY drain placed due to presence of pus around appendix, reduced output today Patient is doing very well postop, ambulating, tolerating clears Patient had fever today, follow vital signs Flagyl added to IV Zosyn General surgery recommends holding off on abdominal CT for now, agrees with antibiotics Appreciate General Surgery DVT Prophylaxis SCD's and ambulation Disposition Patient had recurrence of fever, follow clinically, Flagyl added Progress Note: Quality VTE Deep Vein Thrombosis/Pulmonary Embolism Present on Admission: No _ (1) Acute appendicitis Qualifiers: Acute appendicitis type: with localized peritonitis Appendicitis abscess presence: without abscess Appendicitis gangrene presence: without gangrene Appendicitis perforation presence: without perforation Qualified Code(s): K35.30 - Acute appendicitis with localized peritonitis, without perforation or gangrene
--- NOTE | 2018-06-04 13:28 | P.PNGS ---
Subjective Interval history: Up to the chair Tmax overnight 102.9 Physical Exam Vital signs: Vital Signs 06/03/18 15:11 06/03/18 19:46 06/03/18 23:56 Temperature 97.7 F 98.7 F 98.4 F Pulse Rate 78 95 H 88 Respiratory Rate 16 18 19 Blood Pressure 123/60 146/74 H 121/57 L Pulse Oximetry 97 97 95 06/04/18 08:00 06/04/18 12:00 Temperature 102.8 F H 98 F Pulse Rate 113 H 77 Respiratory Rate 18 18 Blood Pressure 138/87 126/62 Pulse Oximetry 90 L 98 Intake & Output 06/03/18 06/04/18 06/04/18 18:59 06:59 18:59 Intake Total 100 / 100 1050 / 1050 1000 / 1000 Output Total 248 / 248 675 / 675 Balance -148 / -148 375 / 375 1000 / 1000 Weight 59.8 kg 59.8 kg Intake: IV 100 / 100 1050 / 1050 1000 / 1000 NS Inj 1,000 ML @ 80 mls/hr IV. 50 / 50 950 / 950 1000 / 1000 CONT .[id number] [facility] Rx#:[id number] Zosyn 3.375 GM Premix 3.375 gm 50 / 50 100 / 100 In 50 ml @ 100 mls/hr IV.SIG Q8H [facility] Rx#:[id number] Oral 0 / 0 Output: Urine 208 / 208 650 / 650 Wound Drainage 40 / 40 25 / 25 # 1 Abdomen 40 / 40 25 / 25 Other: Date of Last Bowel Movement 05/31/18 05/31/18 Weight On Admission 59.8 kg Narrative: Alert and awake sitting up in the chair Abd: soft; incisions c/d/i; VINNY with cloudy drainage; tender around umbilicus Results - Labs 06/04/18 10:46 06/04/18 10:46 Laboratory Results - last 24 hr 06/04/18 06/04/18 10:46 10:46 WBC 5.6 RBC 3.15 L Hgb 10.6 L Hct 31.9 L MCV 101.2 H MCH 33.6 MCHC 33.2 RDW 13.5 Plt Count 188 MPV 7.9 Neut % (Auto) 85.6 H Lymph % (Auto) 8.3 L [place] % (Auto) 5.6 Eos % (Auto) 0.2 Baso % (Auto) 0.3 Neut # (Auto) 4.8 Lymph # (Auto) 0.5 L [place] # (Auto) 0.3 Eos # (Auto) 0.0 Baso # (Auto) 0.0 WBC Differential . Differential Comment Auto diff final Sodium 142 Potassium 3.0 L Chloride 111 H Carbon Dioxide 19.5 L Anion Gap 12 BUN 18 Creatinine 0.68 Estimated GFR 84 L Random Glucose 79 Calcium 7.4 L* Calcium Adj for Albumin 8.4 L Albumin 2.8 L Assessment and Plan - Assessment (1) Acute appendicitis Code(s): K35.80 - Unspecified acute appendicitis Status: Acute Plan: 77 year old female POD2 lap appy; perforated; peritonitis -Continue clear liquids for now -WBC normal -Continue to monitor fevers -Discussed with Dr. Lorenzo--can hold off on CT for now -Continue IV antibiotics - Plan Patient feels good. REports BM X 2. Wants regular food. Drain serous, no pus , no stool. Will advance diet. Change to PO abx in am. If drain clear will remove tomorrow and consider discharge with 5 days of po abx. ELOINA FLORES MD FACS (1) Acute appendicitis Qualifiers: Acute appendicitis type: with localized peritonitis Appendicitis gangrene presence: without gangrene Appendicitis perforation presence: without perforation Appendicitis abscess presence: without abscess Qualified Code(s): K35.30 - Acute appendicitis with localized peritonitis, without perforation or gangrene
[2018-06-05] MEDS: Piperacil/Tazo 3.375 GM Premix 3.375 GM/50 ML PIGGYBACK IV.SIG SCH (05:06)
[2018-06-05] MEDS: Acetaminophen 325 MG Tablet PO PRN (09:51)
[2018-06-05] MEDS ORDERED: Amoxicillin/Clavulanate 875/125 MG Tablet PO SCH (10:00)
--- NOTE | 2018-06-05 10:53 | P.PNGS ---
Subjective Interval history: Resting in bed No issues except a headache-- she would like Tylenol for this Physical Exam Vital signs: Vital Signs 06/04/18 12:00 06/04/18 16:00 06/04/18 20:00 Temperature 98 F 98 F 97.7 F Pulse Rate 77 75 74 Respiratory Rate 18 17 18 Blood Pressure 126/62 114/60 142/66 H Pulse Oximetry 98 94 L 97 06/05/18 00:00 Temperature 98.8 F Pulse Rate 79 Respiratory Rate 18 Blood Pressure 133/62 Pulse Oximetry 95 Intake & Output 06/04/18 06/05/18 06/05/18 18:59 06:59 18:59 Intake Total 2450 / 2450 1760 / 1760 Output Total 250 / 250 270 / 270 Balance 2200 / 2200 1490 / 1490 Weight 60.2 kg Intake: IV 1250 / 1250 800 / 800 NS Inj 1,000 ML @ 80 mls/hr IV. 1000 / 1000 500 / 500 CONT .[id number] [facility] Rx#:[id number] Zosyn 3.375 GM Premix 3.375 gm 50 / 50 100 / 100 In 50 ml @ 100 mls/hr IV.SIG Q8H [facility] Rx#:[id number] Flagyl 500 MG Inj 100 ML @ 100 200 / 200 200 / 200 mls/hr IV.SIG Q6H [facility] Rx#: [id number] Oral 1200 / 1200 960 / 960 Output: Urine 250 / 250 250 / 250 Wound Drainage # 1 Abdomen Other: # Voids 1 Date of Last Bowel Movement 06/04/18 06/05/18 06/05/18 # Bowel Movements 1 3 Narrative: Alert and awake AbdL: soft; minimally tender; VINNY with SS drainage Results - Labs 06/04/18 10:46 06/04/18 10:46 Laboratory Results - last 24 hr 06/04/18 06/04/18 10:46 10:46 WBC 5.6 RBC 3.15 L Hgb 10.6 L Hct 31.9 L MCV 101.2 H MCH 33.6 MCHC 33.2 RDW 13.5 Plt Count 188 MPV 7.9 Neut % (Auto) 85.6 H Lymph % (Auto) 8.3 L [place] % (Auto) 5.6 Eos % (Auto) 0.2 Baso % (Auto) 0.3 Neut # (Auto) 4.8 Lymph # (Auto) 0.5 L [place] # (Auto) 0.3 Eos # (Auto) 0.0 Baso # (Auto) 0.0 WBC Differential . Differential Comment Auto diff final Sodium 142 Potassium 3.0 L Chloride 111 H Carbon Dioxide 19.5 L Anion Gap 12 BUN 18 Creatinine 0.68 Estimated GFR 84 L Random Glucose 79 Calcium 7.4 L* Calcium Adj for Albumin 8.4 L Albumin 2.8 L Assessment and Plan - Assessment (1) Acute appendicitis Code(s): K35.80 - Unspecified acute appendicitis Status: Acute Plan: 77 year old female POD2 lap appy; perforated; peritonitis -regular diet -Afebrile overnight -Transition to Augmentin -[place] rx and antibiotics rx n chart -Follow up FriJun 10 in the office -GS clear for DC (1) Acute appendicitis Qualifiers: Acute appendicitis type: with localized peritonitis Appendicitis gangrene presence: without gangrene Appendicitis perforation presence: without perforation Appendicitis abscess presence: without abscess Qualified Code(s): K35.30 - Acute appendicitis with localized peritonitis, without perforation or gangrene
--- NOTE | 2018-06-05 12:20 | P.DS ---
DS: Providers Date of admission: 06/02/18 17:37 Primary care physician: UNKNOWN Consults: 06/02/18 18:24 Consult to General Surgery Routine Consulting Provider: Ivan Coreas Preferred Pulp Cooker:: Ivan Coreas Patient known to:: Ivan Coreas Reason for Consultation: Appendisitis Ordering Provider: LINDA 06/04/18 09:15 HUB Only Consult Order Routine Consulting Provider: Ashanti Burrell Brief History from admission: Mrs. Nobles is a 77 year old female. She is healthy at baseline and takes a prophylactic daily baby aspirin and uses a topical vaginal progesterone cream. No other medications. She reports that she has been having some abdominal bloating problems for the past 3 months but in the past 2 days she has had significant and progressive abdominal pain which was most severe last night. She came with friends to the ER today. Imaging shows evidence of appendicitis and ileus. No signs of infection or sepsis on blood work. Pain is controlled on present treatments. No prior history of lung or heart disease. Medically cleared and stable for surgery today. No other complaints tonight. DS: Diagnosis Discharge Diagnosis (1) Acute appendicitis: Status: Acute DS: Summary 77-year-old female who underwent appendectomy on 06/02/2018 that revealed presence of pus in the surrounding area. The area was cleaned out a VINNY drain was placed. She did very well postop was able to ambulate and transition from clear liquids to solid foods. Yesterday she had an unexpected fever once, Flagyl was added and she has been afebrile since. She has been cleared by general surgery for discharge today. Her only pain medicine is Tylenol. She has been instructed by general surgery to take Augmentin for 5 more days. Given fever yesterday provided her a backup plan of Flagyl that she should add to her treatment if the fevers return. She has follow-up scheduled at 2 PM general surgery on 06/10/2018. She should also follow-up with your primary care provider in the next 1-2 weeks. Time Spent with Patient Total time spent providing and/or coordinating discharge services: Less than 30 minutes Quality: VTE Deep Vein Thrombosis/Pulmonary Embolism Present on Admission: No Results Completed studies during hospitalization: Pending at discharge 06/02/18 07:18 Surgical [PTH] Routine Labs on day of discharge: Preliminary micro results at discharge 06/04/18 10:46 Aerobic Blood Culture - Preliminary Blood - Peripheral No growth in 1 day Anaerobic Blood Culture - Preliminary No growth in 1 day 06/04/18 10:40 Aerobic Blood Culture - Preliminary Blood - Peripheral No growth in 1 day Anaerobic Blood Culture - Preliminary No growth in 1 day Discharge Plan Discharge Disposition Patient Disposition: 01 Discharge Home Discharge Condition Condition: Stable Discharge Order Discharge Orders: Discharge Order (Routine); Ordered 06/05/18 Ordered By: Alberto Lorenzo General Surgery Clear for Discharge (Routine); Ordered 06/05/18 Ordered By: Neelam Aguero Discharge Details Anticipated Discharge Date: 06/05/18 Physicians Team Primary Care Provider: UNKNOWN, Attending Provider: Alberto Lorenzo Other Providers: Ivan Coreas ; GeeaAshanti Rxs /Orders / Referrals /Forms Prescriptions: New hydrocodone-acetaminophen 5-325 mg Tablet 1 tab PO Q4H PRN (Reason: acute post op pain exception ) 10 Days RF: 0 amoxicillin-pot clavulanate 875-125 mg Tablet 1 tab PO Q12HR 5 Days RF: 0 metronidazole [Flagyl] 500 mg tablet 500 mg PO Q8H PRN (Reason: fever) 7 Days Qty: 21 RF: 0 Continue aspirin 81 mg Tablet,Delayed Release (Dr/Ec) 81 mg PO DAILY RF: 0 progesterone micronized [Crinone] 4 % Gel 1 appful VAGINAL Q OTHER DAY RF: 0 rosuvastatin [Crestor] 10 mg Tablet 10 mg PO DAILY RF: 0 Referrals: Ivan Coreas MD [Physician] - See Instructions (Appt set for FriJun 10 at 2PM ) UNKNOWN, [Primary Care Provider] - See Instructions Discharge Interventions Interventions: Discharge Planning - Case Management Last Done: 06/03/18 10:47 Status ED Status: Left Department
== END 2018-06-05 13:34 | disposition home or self-care (01) ==
LOC: NEPD 16:32 → NEDA 17:37 → N07 18:34
PROVIDERS: ADMIT Family Medicine; ATTEND Family Medicine
PROC: LAPAPPY (ICD-10-PCS; 2018-06-02 19:04)